=== PATIENT | male | born 1985 | race Caucasian/White ===

== ENCOUNTER 2016-09-11 16:05 | Outpatient (CLI) | payer MEDICAID | END 2016-09-11 16:06 | disposition critical access hospital (66) | LOC: EMS 16:05 | PROVIDERS: ATTEND Surgery | DX: R52 Pain, unspecified (principal); R40.0 Somnolence | CPT/HCPCS: A0425; A0429 ==

== ENCOUNTER 2016-09-11 16:28 | Inpatient (IN) | payer MEDICAID ==
[2016-09-11] MEDS ORDERED: ONDANSETRON 4 MG/2 ML VIAL IVP STA (17:02)
[2016-09-11] MEDS ORDERED: HYDROmorphone 1 MG/ML SYRINGE IM STA (17:02)
[2016-09-11] MEDS ORDERED: SODIUM CHLORIDE 0.9% 1,000 ML IV ONE ×4 (17:02→18:37)
[2016-09-11] MEDS ORDERED: KETOROLAC 60 MG/2 ML VIAL IVP STA (17:02)
[2016-09-11] MEDS ORDERED: HYDROmorphone 1 MG/ML SYRINGE ONE (17:08)
[2016-09-11] MEDS ORDERED: KETOROLAC 60 MG/2 ML VIAL ONE (17:08)
[2016-09-11] MEDS ORDERED: ONDANSETRON 4 MG/2 ML VIAL ONE (17:08)
[2016-09-11] MEDS ORDERED: HYDROmorphone 1 MG/ML SYRINGE IVP STA (17:10)
--- NOTE | 2016-09-11 17:29 | ED Physician Documentation ---
History of Present Illness - Stated complaint Stated Complaint: POSS KIDNEY STONE - Chief complaint Chief Complaint: Abd Pain - History obtained from History obtained from: Patient - Additonal information Additional information: This patient is a 30-year-old male with a history of recurrent nephrolithiasis. He says he has had stones in both kidneys and has had a stent in the left kidney in the past. He says he frequently has kidney type pain however the last day or 2 he has had more pain in the left side described as a stabbing sensation.He is also had nausea and vomiting without fever or chills. He has not had constipation diarrhea or lower urinary symptoms. Denies chest pain or shortness of breath. He believes he might have another kidney stone on the left side. He normally gets his care in [facility] but lives down here with his mother. He denies any traumatic injury to his back. He does say that movement causes pain in his back which is a little different than his typical kidney stone type pain. Review of systems: For pertinent positive and negative questions for the review of systems please see history of present illness. Otherwise all other systems have been reviewed and are negative. Dragon disclaimer: Parts of this medical record were created using voice recognition technology. Because of the inherent limitations of this system occasional same sounding word substitutions do occur and persist despite proofreading. Please read the document for context. PD PAST MEDICAL HISTORY - Past Medical History Past Medical History: Yes : Kidney stones - Past Surgical History General: Cholecystectomy - Present Medications Home Medications: Ambulatory Orders Medication Instructions Recorded Confirmed No Known Home Medications [No 09/11/16 09/11/16 Known Home Medications] - Allergies Allergies/Adverse Reactions: Allergies Allergy/AdvReac Type Severity Reaction Status Date / Time No Known Drug Allergies Allergy Verified 09/11/16 16:34 - Social History Does the pt smoke?: No Smoking Status: Never smoker Does the pt drink ETOH?: No Does the pt have substance abuse?: Yes Substance Use and Type: Marijuana, Meth - Immunizations Immunizations are current?: No Immunizations: TDAP >10years/unknown PD ED PE NORMAL - Vitals Vital signs reviewed: Yes - General General: Alert and oriented X 3, Well developed/nourished - HEENT HEENT: Atraumatic, PERRL, EOMI, Pharynx benign - Cardiac Cardiac: RRR, No murmur, No gallop, No rub - Respiratory Respiratory: No respiratory distress, Clear bilaterally - Abdomen Abdomen: Normal bowel sounds, Non tender, Non distended, Other (The patient is tender to the left upper middle and lower quadrant. There is no significant CVA tenderness however he does have some tenderness in the paraspinal muscle adjacent to L4 area) - Back Back: No CVA TTP - Derm Derm: Normal color, Warm and dry, No rash, Other - Extremities Extremities: No deformity, No tenderness to palpate, Normal ROM s pain, No edema - Neuro Neuro: Alert and oriented X 3, No motor deficit, No sensory deficit, Other (I do not appreciate any weakness in the extremities however the patient does complain of muscular pain in both legs equal bilaterally) - Psych Psych: Normal mood, Normal affect Results - Vitals Vitals: Vital Signs - 24 hr 09/11/16 09/11/16 09/11/16 16:31 18:31 19:02 Temperature 36.6 C 36.5 C Heart Rate 76 90 82 Respiratory 16 14 18 Rate Blood Pressure 159/116 H 141/66 H 147/85 H O2 Saturation 97 95 94 Oxygen O2 Source Room air - Labs Labs: Laboratory Tests 09/11/16 09/11/16 09/11/16 17:33 17:33 18:36 WBC 27.3 H RBC 5.76 Hgb 16.2 Hct 48.1 MCV 83.5 MCH 28.0 MCHC 33.6 RDW 13.1 Plt Count 310 MPV 7.6 Neut # Not Reportable Lymph # Not Reportable [place] # Not Reportable Eos # Not Reportable Baso # Not Reportable Absolute Nucleated RBC Not Reportable Band Neuts % (Manual) 5 Neutrophils # (Manual) 24.8 H Lymphocytes # (Manual) 0.8 L Monocytes # (Manual) 1.6 H Nucleated RBCs Not Reportable WBC Morphology 1+ TOXIC GRANULATION Platelet Estimate NORMAL (130-450,000) RBC Morph Micro Appear NORMAL APPEARANCE Sodium 135 Potassium 3.2 L Chloride 102 Carbon Dioxide 22 Anion Gap 11.0 BUN 20 Creatinine 1.2 Estimated GFR (MDRD) 71 L Glucose 115 H Lactic Acid 0.9 Calcium 9.4 Total Bilirubin 1.3 H AST 17 ALT 29 Alkaline Phosphatase 70 Total Creatine Kinase 82 Total Protein 8.2 Albumin 4.4 Globulin 3.8 Albumin/Globulin Ratio 1.2 Lipase 20 L PD MEDICAL DECISION MAKING - ED course ED course: 30-year-old male with a history of recurrent nephrolithiasis status post left kidney stent well over a year ago who is not followed up to have it removed. He presents with left-sided Back pain starting yesterday. This back pain is a little more posterior and closer His lumbar spine than it normally is. Since he does have a history of recurrent kidney stones he thought Pain was related to his past history of stones. He felt warm last night and occasionally had chills but never measured a temperature. He had recurrent nausea and vomiting last night on several occasions and the pain in the left paralumbar area just intensified. This pain is not really made better by anything including movement. He also complains of being weak and having a cramping sensation in his legs bilaterally. This pain does not radiate into the buttocks or down into the leg and has no weakness of the legs. He finally came in today because he was not getting better. On initial presentation is a large habitus male who was slightly flushed in appearance. He was not found to have a temperature here. An IV line was started and he is given IV fluids pain and nausea medications. On physical exam I thought he had some tenderness closer to the lumbar spine and was wondering whether this is more spinal muscular strain as opposed to recurrent nephrolithiasis. Plain film was done that shows a stent in relatively normal position however the distal end was then coiled a little. There is no clear-cut migration. Next a CT scan of the lumbar spine was done and the results of this test is pending at this time. In the interim his blood work started to come back it showed a significantly elevated white blood cell count. Blood cultures and a serum lactate were ordered as well as additional fluid resuscitation and empiric antibiotics. The case was discussed with urology on-call at [facility] Dr. Azevedo. The case was discussed with her. She feels that true pyelonephrosis is unlikely that the small hydronephrosis we see probably is not indicative of complete obstruction. She recommends vigorous IV hydration and IV antibiotics which have already been initiated. Once we obtain a urine this will be sent for culture as well. The patient has been unable to give us urine so far and refuses a in and out catheterization. Clinically he is doing well. His blood pressure and pulse remained normal.The case was discussed with hospitalist and she is currently evaluating the patient.At this time it appears that he will be kept here at our hospital, hydrated given IV antibiotics and watched very closely.At this time the patient clinically looks and feels much better. His serum lactate came back normal at 0.9. We are still waiting for a urinalysis. Disposition pending admission Clinical impression: 1. Acute pyelonephritis 2. History of recurrent nephrolithiasis and stent placement left side 3. Left flank pain Departure - Departure Disposition: [facility] DC/Xfer Clinical Impression: Pyelonephritis, Pyelonephritis Clinical Impression: (Ruled Out): Pyonephrosis Condition: Serious
--- NOTE | 2016-09-11 17:35 | XRAY Preliminary Report ---
Exam: XR Abdomen 1 View IMPRESSION: Left-sided ureteral stent with the pigtail at the distal end appearing partially uncoiled . [facility] SITE ID: [id number]
--- NOTE | 2016-09-11 17:37 | XRAY Report ---
EXAM: ABDOMEN RADIOGRAPHY EXAM DATE: 09/11/2016 05:05 PM. CLINICAL HISTORY: Severe back pain on left side. Check ureteral stent. COMPARISON: None. TECHNIQUE: 1 view. FINDINGS: Bowel Gas Pattern: Within normal limits. No abnormal stool volume or dilated loops. Bones: Unremarkable. Other: Left-sided ureteral stent. The pigtail at the distal end appears partially uncoiled. Surgical clips in the right upper quadrant. IMPRESSION: Left-sided ureteral stent with the pigtail at the distal end appearing partially uncoiled . [facility] Referring Provider Line: [phone] SITE ID: [id number]
[2016-09-11 17:48] LABS: BASOPHILS % (AUTO) 0.6 %; HCT - HEMATOCRIT 48.1 % (42.0-52.0); HGB - HEMOGLOBIN 16.2 g/dL (14.0-18.0); LYMPHOCYTES % (AUTO) 5.1 %; MEAN CORPUSCULAR HGB CONC 33.6 g/dL (32.0-36.0); MEAN CORPUSCULAR VOLUME 83.5 fL (80.0-94.0); MEAN PLATELET VOLUME 7.6 fL (7.4-11.4); MONOCYTES % (AUTO) 9.5 %; NEUTROPHILS % (AUTO) 84.8 %; RED BLOOD COUNT 5.76 10^6/uL (4.70-6.10); RED CELL DISTRIBUTION WIDTH 13.1 % (12.0-15.0); UNCORRECTED WHITE BLOOD COUNT 27.3 x10^3/uL; WHITE BLOOD COUNT 27.3 x10^3/uL (4.8-10.8)
[2016-09-11 17:54] LABS: ALBUMIN/GLOBULIN RATIO 1.2 (1.0-2.2); BILIRUBIN,TOTAL 1.3 mg/dL (0.2-1.0); CALCIUM 9.4 mg/dL (8.5-10.3); CREATININE 1.2 mg/dL (0.6-1.2); POTASSIUM 3.2 mmol/L (3.5-5.0); TOTAL PROTEIN 8.2 g/dL (6.7-8.2)
[2016-09-11 18:08] LABS: BAND NEUTROPHILS % (MANUAL) 5 %; LYMPHOCYTES % (MANUAL) 3 %; NEUTROPHILS % (MANUAL) 86 %; NP AUTO DIFFERENTIAL? YES; NP MAN DIFFERENTIAL? NO; PLATELET ESTIMATE, MANUAL NORMAL (130-450,000) (NORMAL); WBC MORPHOLOGY (MULTIPLE) 1+ TOXIC GRANULATION (NORMAL)
--- NOTE | 2016-09-11 18:48 | CT Preliminary Report ---
Exam: CT Lumbar Spine W/O IMPRESSION: No evidence of lumbar spine fracture. Left nephrolithiasis, with a nonobstructing 8 mm ca lculus in the proximal left ureter. The left double-J stent, which does not extend into the urinary b ladder. Hydronephrosis, despite the presence of the double-J stent, compatible with stent malfunction . [facility] SITE ID: [id number]
--- NOTE | 2016-09-11 18:51 | CT Report ---
EXAM: CT LUMBAR SPINE WITHOUT CONTRAST EXAM DATE: 09/11/2016 06:17 PM. CLINICAL HISTORY: LEFT SIDED PAIN /TENDERNESS ADJACENT TO L2,L3. COMPARISONS: None. TECHNIQUE: Thin-section axial images were acquired of the lumbar spine from T12 to S1 without contras t. Post-processing: Coronal and sagittal reformats. Other: None. In accordance with CT protocol optimization, one or more of the following dose reduction techniques w ere utilized for this exam: automated exposure control, adjustment of mA and/or KV based on patient s ize, or use of iterative reconstructive technique. FINDINGS: Alignment: Normal. No scoliosis or spondylolisthesis. Bones: Five [id number]-[id number] lumbar vertebral bodies are present. No fractures or bone lesions. Disk Levels/Facets: T12-L1: Unremarkable. L1-L2: Unremarkable. L2-L3: Unremarkable. L3-L4: Unremarkable. L4-L5: Unremarkable. L5-S1: Unremarkable. Musculature: Normal. No fatty atrophy. Other: Left nephrolithiasis is seen, with hydronephrosis. There is an 8 mm calculus obstructing the p roximal left ureter. There is a left double-J stent in place, but the distal end of the double-J sten t terminates in the distal ureter, it does not extend into the urinary bladder, and the hydronephrosi s is present despite the presence of the stent, indicating stent malfunction. IMPRESSION: No evidence of lumbar spine fracture. Left nephrolithiasis, with a nonobstructing 8 mm ca lculus in the proximal left ureter. The left double-J stent, which does not extend into the urinary b ladder. Hydronephrosis, despite the presence of the double-J stent, compatible with stent malfunction . [facility] Referring Provider Line: [phone] SITE ID: [id number]
[2016-09-11] MEDS ORDERED: ONDANSETRON 4 MG/2 ML VIAL IVP PRN (19:33)
[2016-09-11] MEDS ORDERED: POTASSIUM CHLORIDE 20 MEQ TABLET PO SCH (19:55)
--- NOTE | 2016-09-11 20:07 | XRAY Preliminary Report ---
Exam: XR Chest 2 View PA/LAT IMPRESSION: Normal 2-view chest radiography. [facility] SITE ID: [id number]
--- NOTE | 2016-09-11 20:10 | XRAY Report ---
EXAM: CHEST RADIOGRAPHY EXAM DATE: 09/11/2016 07:52 PM. CLINICAL HISTORY: Fever and white count. COMPARISON: None. TECHNIQUE: 2 views. FINDINGS: Lungs/Pleura: No focal opacities evident. No pleural effusion. No pneumothorax. Normal volumes. Mediastinum: Heart and mediastinal contours are unremarkable. Other: None. IMPRESSION: Normal 2-view chest radiography. [facility] Referring Provider Line: [phone] SITE ID: [id number]
[2016-09-11 20:44] LABS: HEMOGLOBIN A1C 0.59 g/dL
[2016-09-11] MEDS: HEPARIN 5,000 UNIT/ML VIAL SUBQ SCH (21:03)
[2016-09-11] MEDS: SODIUM CHLORIDE 0.9% 1,000 ML IV SCH (21:03)
[2016-09-11] MEDS: SODIUM CHLORIDE FLUSH 0.9% 10 ML SYRINGE IVP SCH (21:06)
[2016-09-11] MEDS: FAMOTIDINE 20 MG TABLET PO SCH (21:08)
--- NOTE | 2016-09-11 21:27 | Ultrasound Preliminary Report ---
Exam: US Abdomen Complete IMPRESSION: 1. Hyperechoic liver parenchyma suspicious for fatty infiltration. No mass. 2. Gallbladder surgically absent. Prominent common bile duct. No obstructive stone or mass lesion. 3. Pancreas poorly seen due to bowel gas. Study limited by body habitus. 4. Mild left pelviectasis. 0.8 cm mid left renal stone. [facility] SITE ID: [id number]
--- NOTE | 2016-09-11 21:27 | Ultrasound Preliminary Report ---
Exam: US Bladder IMPRESSION: 1. Left ureteral jet not seen. Normal bladder otherwise. 2. See separate renal ultrasound. [facility] SITE ID: [id number]
--- NOTE | 2016-09-11 21:33 | HISTORY & PHYSICAL EXAMINATION ---
DATE OF ADMISSION: 09/11/2016 ADDENDUM: REQUESTS ALREADY-DICTATED HandP BE DONE STAT - THIS STAT CAME THROUGH WITH MESSAGE ONLY . WILL SEE IF DICTATED HandP COMES THROUGH NEXT DOCUMENT. PATIENT NAME NOT GIVEN HERE - JOB #: [id number] EXT JOB #:[id number]
--- NOTE | 2016-09-11 22:00 | Ultrasound Report ---
EXAM: ABDOMEN ULTRASOUND EXAM DATE: 09/11/2016 09:09 PM. CLINICAL HISTORY: Pain,leukocytosis. COMPARISON: None. TECHNIQUE: Real-time scanning was performed with static images obtained. FINDINGS: Liver: Heterogeneous liver parenchyma. No mass. Evaluation of the liver is limited due to body habitu s. 17 cm. Main portal vein flow: Hepatopetal. Not well-seen. Gallbladder: Gallbladder surgically absent. Biliary System: Common bile duct measures 11 mm. Prominent extrahepatic bile duct dilation without ga llstones. No intrahepatic bile duct dilation. Pancreas: Not well seen due to body habitus. Kidneys: Right: 13.5 cm longitudinally. No renal mass, stones or hydronephrosis. Left: 13 cm longitudinally. No contour deforming renal mass. Mild left pelviectasis better seen on CT . 0.8 cm shadowing mid left renal stone. Spleen: 12.2 x 4.5 x 9.7 cm. Normal in size and echotexture. Aorta and Inferior Vena Cava: IVC not well seen. No abdominal aortic dilation. IMPRESSION: 1. Hyperechoic liver parenchyma suspicious for fatty infiltration. No mass. 2. Gallbladder surgically absent. Prominent common bile duct. No obstructive stone or mass lesion. 3. Pancreas poorly seen due to bowel gas. Study limited by body habitus. 4. Mild left pelviectasis. A 0.8 cm mid left renal stone. [facility] Referring Provider Line: [phone] SITE ID: [id number]
--- NOTE | 2016-09-11 22:00 | Ultrasound Report ---
EXAM: PELVIS ULTRASOUND, LIMITED EXAM DATE: 09/11/2016 09:09 PM. CLINICAL HISTORY: Pyelonephritis. COMPARISON: None. TECHNIQUE: Real-time scanning was performed with static images obtained. FINDINGS: Right ureteral jet is seen. Left ureteral jet not seen. Prevoid bladder volume measures 80. 9 mL. No post void bladder imaging acquired. Bladder is normal. See separate renal ultrasound report. Briefly, mild left pelviectasis better seen on CT. A 0.8 cm lef t renal stone noted. IMPRESSION: 1. Left ureteral jet not seen. Normal bladder otherwise. 2. See separate renal ultrasound. [facility] Referring Provider Line: [phone] SITE ID: [id number]
[2016-09-11] MEDS: HYDROmorphone 1 MG/ML SYRINGE IVP PRN (23:52)
[2016-09-12 00:11] LABS: BILIRUBIN,URINE NEGATIVE (NEGATIVE)
[2016-09-12 00:12] LABS: UA w/ MICROSCOPIC CHARGE YES; UR CULTURE IF IND NOT INDICATED; WBC,URINE 0-3 /HPF (0-3)
[2016-09-12] MEDS: SODIUM CHLORIDE 0.9% 1,000 ML IV SCH ×4 (03:23→22:55)
[2016-09-12] MEDS: HYDROmorphone 1 MG/ML SYRINGE IVP PRN ×6 (03:23→23:49)
[2016-09-12] MEDS: SODIUM CHLORIDE FLUSH 0.9% 10 ML SYRINGE IVP SCH ×3 (05:01→21:00)
--- NOTE | 2016-09-12 06:48 | HISTORY & PHYSICAL EXAMINATION ---
DATE OF ADMISSION: 09/11/2016 PRIMARY CARE PROVIDER: None. CHIEF COMPLAINT: Left flank pain, fevers, chills. HISTORY OF PRESENT ILLNESS: This is a 30-year-old male who does have a history of nephrolithiasis. He had 2 separate times left ureteral stent placed due to obstructing stones. Last was a year ago, done at [facility]. We do not have old records at this time. He, in the emergency room here today, did have an elevated white count of 27.3 with 23.8 polys. He was afebrile here. Urine was not obtained as patient did not produce any urine and refused straight catheterization for this. He did have CT of lumbar spine initially, ER doctor was thinking that he might have diskitis. His lumbar CT spine revealed no evidence of lumbar spine fracture, left nephrolithiasis with a nonobstructing 8 mm calculus in the proximal left ureter. The left double-J stent which does not extend into the urin larry bladder, hydronephrosis despite the presence of the double-J stent compatible with stent malfunct ion. However, Dr. Turner, ER doctor, did review this with Urology at [facility] who thought that the stent malfunction was highly unlikely and possibly has a pyelonephritis leading to the hydronephrosis, treat with IV antibiotics and keep at [facility]. If further problems de velop, to give her a call. PAST MEDICAL HISTORY 1. History of nephrolithiasis, unclear composition with left ureteral stent x2, most recently a year ago. 2. Morbid obesity. MEDICATIONS UPON ADMISSION: None. ALLERGIES: NO KNOWN DRUG ALLERGIES. SOCIAL HISTORY: Lives with mother. Smoking: Does smoke marijuana. Alcohol: None. FAMILY MEDICAL HISTORY: Mother and brother with a history of type 2 diabetes. REVIEW OF SYSTEMS: Denies any alteration of bowel movements. Denies cough. All other review of system s are reviewed and are negative except for as in HPI. PHYSICAL EXAMINATION VITAL SIGNS: Temperature 36.6, heart rate 79, blood pressure 145/84, respiratory rate 18, room air sa t 95%. CONSTITUTIONAL: Morbidly obese young male in mild pain distress. HEENT: Head normocephalic, atraumatic. Eyes: PERRLA-DC, EOMI. Mouth: No lesions. NECK: No adenopathy. Carotids 2+/4 without bruits. CHEST: Clear to auscultation. COR: Regular rate and rhythm. S1, S2 without murmur. ABDOMEN: Soft. There is mild tenderness in the epigastrium. No rebound. No guarding. He does have lef t flank pain tenderness to palpation. EXTREMITIES: Reveal no pedal edema. SKIN: Reveals no rashes. PSYCH: Mood and affect are appropriate. NEURO: Alert and oriented x3. Motor strength is intact bilaterally. LABS: As above. Also to include white count of 27.3, hemoglobin 16.2, hematocrit 48.1, MCV 83.5, plat elets 310, with 24.8 polys. Sodium 135, potassium 3.2, chloride 102, bicarbonate 22, anion gap 11, BU N 20, creatinine 1.2, calculated GFR 71. No old labs for comparison. Glucose 115, lactic acid 0.9, ca lcium 9.4, total bilirubin 1.3, AST 17, ALT 29, alkaline phosphatase 70. CK 82, total protein 8.2, al bumin 4.4, lipase 20. ASSESSMENT AND PLAN 1. Acute left flank pain, possibly secondary to pyelonephritis although awaiting urine. Will treat wi th IV Levaquin as recommended by Urology as [facility]. Monitor clinically. Will al so use Zofran p.r.n. nausea and vomiting. 2. Morbid obesity, chronic, present on admission. Will check hemoglobin A1c, particularly in light of family history of this and has not seen his physician recently. 3. Deep venous thrombosis prophylaxis. Will place on subcutaneous anticoagulation and sequential comp ression devices. 4. Code status. Patient is FULL CODE. TIME SPENT: Sixty minutes. JOB #: [id number] EXT JOB #:[id number]
[2016-09-12] MEDS: FAMOTIDINE 20 MG TABLET PO SCH ×2 (08:32→21:00)
[2016-09-12] MEDS: ACETAMINOPHEN 325 MG TABLET PO PRN (08:32)
[2016-09-12] MEDS: POLYETHYLENE GLYCOL 3350 17 GM PACKET PO SCH (08:33)
[2016-09-12] MEDS: HEPARIN 5,000 UNIT/ML VIAL SUBQ SCH ×2 (08:33→20:57)
[2016-09-12 08:43] LABS: BILIRUBIN,URINE NEGATIVE (NEGATIVE); PH,URINE 6.5 PH (5.0-7.5)
[2016-09-12 08:48] LABS: UR CULTURE IF IND NOT INDICATED
--- NOTE | 2016-09-12 12:17 | PROVIDER PROGRESS NOTE ---
Assessment/Plan - Problem List (1) Pyelonephritis Assessment/Plan: I was requested by Uribe S[employer]IOR [employer] to see Mr. Toure as he had told staff he was having difficulty understandin the provider. After review of the chart including the studies and the H&P I interviewed Rashad. He was in some pain was drowsy but easily arouseable. He retold his history with focus on the events leading up to this hospitalization. Questions were solicited and the plan was reviewed. He indicated he was getting adequate pain relief and was "as good as I can be". He will be closely monitored given the serious illness. He has not deteriorated and does not need ICU level of care at this time. He will be visited by this physician again this afternoon. Since the PCP will change in the am and Uribe has already examined him he will remain on the same panel. Fiona Pastrana MD [id number] 09/12/70 - Current Meds Current Meds: Current Medications Generic Name Dose Route Start Last Admin Trade Name Freq PRN Reason Stop Dose Admin Acetaminophen 650 mg 09/11/16 19:40 09/12/16 08:32 Tylenol PO 650 mg Q4HR PRN Administration Pain or Fever > 38C (100.4F) Famotidine 20 mg 09/11/16 21:00 09/12/16 08:32 Pepcid PO 20 mg BID MICHELLE Administration Heparin Sodium (Porcine) 5,000 unit 09/11/16 21:00 09/12/16 08:33 SUBQ 5,000 unit BID MICHELLE Administration Hydromorphone HCl 1 mg 09/11/16 19:36 09/12/16 07:36 Dilaudid Inj IVP 1 mg Q2HR PRN Administration PAIN Sodium Chloride 1,000 mls @ 150 mls/hr 09/11/16 20:00 09/12/16 09:46 Normal Saline 0.9% IV 150 mls/hr .Q6H40M MICHELLE Administration Polyethylene Glycol 17 gm 09/12/16 09:00 09/12/16 08:33 Miralax PO Not Given DAILY MICHELLE Sodium Chloride 10 ml 09/11/16 22:00 09/12/16 05:01 Normal Saline Flush 0.9% IVP Not Given Q8HR MICHELLE - Lab Result Fish Bone Diagrams: 09/11/16 17:33 09/11/16 17:33 Objective Vital Signs: Vital Signs - 24 hr 09/11/16 09/11/16 09/12/16 19:40 20:51 00:00 Temperature 36.7 C 36.4 C L Heart Rate 79 Heart Rate [ 71 89 Brachial] Respiratory 18 20 20 Rate Blood Pressure 145/84 H Blood Pressure 148/85 H 116/75 [Left Brachial artery] O2 Saturation 95 98 97 09/12/16 07:57 Temperature 37.1 C Heart Rate Heart Rate [ 94 Brachial] Respiratory 20 Rate Blood Pressure Blood Pressure 137/90 H [Left Brachial artery] O2 Saturation 94 Oxygen O2 Source Room air I&O (Last 24 Hrs): Intake and Output Totals x24h 09/10/16 09/11/16 09/12/16 23:59 23:59 23:59 Intake Total 247 1670 Output Total 150 Balance 97 1670 - Results Results: Laboratory Results WBC 27.3 x10^3/uL (4.8-10.8) H 09/11/16 17:33 RBC 5.76 10^6/uL (4.70-6.10) 09/11/16 17:33 Hgb 16.2 g/dL (14.0-18.0) 09/11/16 17:33 Hct 48.1 % (42.0-52.0) 09/11/16 17:33 MCV 83.5 fL (80.0-94.0) 09/11/16 17:33 MCH 28.0 pg (27.0-31.0) 09/11/16 17:33 MCHC 33.6 g/dL (32.0-36.0) 09/11/16 17:33 RDW 13.1 % (12.0-15.0) 09/11/16 17:33 Plt Count 310 10^3/uL (130-450) 09/11/16 17:33 MPV 7.6 fL (7.4-11.4) 09/11/16 17:33 Neut # Not Reportable 09/11/16 17:33 Lymph # Not Reportable 09/11/16 17:33 [place] # Not Reportable 09/11/16 17:33 Eos # Not Reportable 09/11/16 17:33 Baso # Not Reportable 09/11/16 17:33 Absolute Nucleated RBC Not Reportable 09/11/16 17:33 Band Neuts % (Manual) 5 % (0-10) 09/11/16 17:33 Neutrophils # (Manual) 24.8 10^3/uL (1.5-6.6) H 09/11/16 17:33 Lymphocytes # (Manual) 0.8 10^3/uL (1.5-3.5) L 09/11/16 17:33 Monocytes # (Manual) 1.6 10^3/uL (0.0-1.0) H 09/11/16 17:33 Nucleated RBCs Not Reportable 09/11/16 17:33 WBC Morphology 1+ TOXIC GRANULATION (NORMAL) 09/11/16 17:33 Platelet Estimate NORMAL (130-450,000) (NORMAL) 09/11/16 17: RBC Morph Micro Appear NORMAL APPEARANCE (NORMAL) 09/11/16 17:33 Sodium 135 mmol/L (135-145) 09/11/16 17:33 Potassium 3.2 mmol/L (3.5-5.0) L 09/11/16 17:33 Chloride 102 mmol/L (101-111) 09/11/16 17: Carbon Dioxide 22 mmol/L (21-32) 09/11/16 17:33 Anion Gap 11.0 (6-13) 09/11/16 17:33 BUN 20 mg/dL (6-20) 09/11/16 17:33 Creatinine 1.2 mg/dL (0.6-1.2) 09/11/16 17:33 Estimated GFR (MDRD) 71 (>89) L 09/11/16 17:33 Glucose 115 mg/dL (70-100) H 09/11/16 17:33 Glycated Hemoglobin 5.4 % (4.6-6.2) 09/11/16 17:33 Estim Average Glucose 108 (70-100) H 09/11/16 17:33 Lactic Acid 0.9 mmol/L (0.5-2.2) 09/11/16 18:36 Calcium 9.4 mg/dL (8.5-10.3) 09/11/16 17:33 Total Bilirubin 1.3 mg/dL (0.2-1.0) H 09/11/16 17:33 AST 17 IU/L (10-42) 09/11/16 17:33 ALT 29 IU/L (10-60) 09/11/16 17:33 Alkaline Phosphatase 70 IU/L (42-121) 09/11/16 17:33 Total Creatine Kinase 82 IU/L (22-269) 09/11/16 17:33 Total Protein 8.2 g/dL (6.7-8.2) 09/11/16 17:33 Albumin 4.4 g/dL (3.2-5.5) 09/11/16 17: Globulin 3.8 g/dL (2.1-4.2) 09/11/16 17:33 Albumin/Globulin Ratio 1.2 (1.0-2.2) 09/11/16 17:33 Lipase 20 U/L (22-51) L 09/11/16 17:33 Urine Color YELLOW 09/12/16 08:00 Urine Clarity CLEAR (CLEAR) 09/12/16 08:00 Urine pH 6.5 PH (5.0-7.5) 09/12/16 08:00 Ur Specific [place] 1.020 (1.002-1.030) 09/12/16 08:00 Urine Protein NEGATIVE mg/dL (NEGATIVE) 09/12/16 08:00 Urine Glucose (UA) NEGATIVE mg/dL (NEGATIVE) 09/12/16 08:00 Urine Ketones 15 mg/dL (NEGATIVE) H 09/12/16 08:00 Urine Occult Blood MODERATE (NEGATIVE) H 09/12/16 08:00 Urine Nitrite NEGATIVE (NEGATIVE) 09/12/16 08:00 Urine Bilirubin NEGATIVE (NEGATIVE) 09/12/16 08:00 Urine Urobilinogen 1 (NORMAL) E.U./dL (NORMAL) 09/12/16 08:00 Ur Leukocyte Esterase NEGATIVE (NEGATIVE) 09/12/16 08:00 Urine RBC 6-10 /HPF (0-5) H 09/12/16 08:00 Urine WBC 4-5 /HPF (0-3) 09/12/16 08:00 Ur Squamous Epith Cells RARE Squamous (<= Few) 09/12/16 08:00 Urine Bacteria Rare /HPF (None Seen) 09/12/16 08:00 Ur Microscopic Review INDICATED 09/11/16 23:45 Urine Culture Comments NOT INDICATED 09/12/16 08:00
--- NOTE | 2016-09-12 12:19 | PROVIDER PROGRESS NOTE ---
Subjective - Prog Note Date Prog Note Date: 09/12/16 Prog Note Time: 12:17 - Subjective Subjective: pt report he does not have pain now, after given pain medication Objective - Vital Signs/Intake & Output Vital Signs: Vital Signs x48h Temp Pulse Resp BP Pulse Ox 09/12/16 07:57 37.1 C 94 20 137/90 H 94 Intake & Output: Intake & Output 09/09/16 09/10/16 09/11/16 09/12/16 23:59 23:59 23:59 23:59 Intake Total 247 1670 Output Total 150 Balance 97 1670 - Objective General Appearance: positive: No acute distress, Alert Eyes Bilateral: positive: Normal inspection, PERRL, EOMI ENT: positive: ENT inspection nml, No signs of dehydration. negative: Pharynx nml, Purulent nasal drainage, Pharyngeal erythema, Oral lesions, Dry mucous membranes, Other Neck: positive: Nml inspection, Thyroid nml, No JVD, Trachea midline. negative : Thyromegaly, Lymphadenopathy (R), Lymphadenopathy (L), Stiff neck, Kernig's sign, Brudzinski's sign, Carotid bruit, Swelling/bruising, Tracheal deviation, Other Respiratory: positive: Chest non-tender, No respiratory distress, Breath sounds nml. negative: Wheezes, Rales, Rhonchi, Other Cardiovascular: positive: Regular rate & rhythm, No murmur, No gallop. negative : Irregularly irregular, Extrasystoles, Tachycardia, Bradycardia, PMI displaced laterally, JVD present, Systolic murmur, Diastolic murmur, Gallop/S3, Gallop/S4 , Friction rub, Decreased pulse(s), Crepitus, Other Peripheral Pulses: 2+ Radial (R), 2+ Radial (L), 2+ Dorsalis pedis (R), 2+ Dorsalis pedis (L) Abdomen: positive: Non-tender, Nml bowel sounds, No distention. negative: No organomegaly, Tenderness, Guarding, Rebound, Hepatomegaly, Splenomegaly, Mass, Abnml bowel sounds, Bruit, Other Back: positive: Nml inspection, CVA tenderness (L). negative: CVA tenderness (R ), Other Skin: positive: Color nml, Warm. negative: No rash, Dry, Cyanosis, Diaphoresis , Pallor, Skin rash, Decubitus, Laceration (cm), Puncture wound, Embolic lesions , Other Extremities: positive: Non-tender, Full ROM, Nml appearance. negative: No pedal edema, Pedal edema, Calf tenderness, Joint swelling, Liu's sign/cords, Other Neurologic/Psychiatric: positive: Oriented x3, CN's nml (2-12), Motor nml, Sensation nml, Mood/affect nml - Lab Results Fish Bones: 09/11/16 17:33 09/11/16 17:33 Other Labs: Lab Results x24hrs 09/12/16 09/11/16 Range/Units 08:00 23:45 Urine Color YELLOW DARK YELLOW Urine Clarity CLEAR CLEAR (CLEAR) Urine pH 6.5 6.0 (5.0-7.5) PH Ur Specific [place] 1.020 >=1.030 H (1.002-1.030) Urine Protein NEGATIVE NEGATIVE (NEGATIVE) mg/dL Urine Glucose (UA) NEGATIVE NEGATIVE (NEGATIVE) mg/dL Urine Ketones 15 H 15 H (NEGATIVE) mg/dL Urine Occult Blood MODERATE H MODERATE H (NEGATIVE) Urine Nitrite NEGATIVE NEGATIVE (NEGATIVE) Urine Bilirubin NEGATIVE NEGATIVE (NEGATIVE) Urine Urobilinogen 1 (NORMAL) 0.2 (NORMAL) (NORMAL) E.U./dL Ur Leukocyte Esterase NEGATIVE NEGATIVE (NEGATIVE) Urine RBC 6-10 H 6-10 H (0-5) /HPF Urine WBC 4-5 0-3 (0-3) /HPF Ur Squamous Epith Cells RARE Squamous NONE SEEN (<= Few) Urine Bacteria Rare None Seen (None Seen) /HPF Ur Microscopic Review INDICATED Urine Culture Comments NOT INDICATED NOT INDICATED - Diagnostic Imaging Diagnostic Imaging Results: positive: Prelim report reviewed, Final report reviewed - Other Results/Comments Other Results/Comments: I went to see pt at [facility]. I introduced my self to patient. I asked how he is feeling. He did not directly answer to me but state his pain is completely controlled I updated information to patient including new imagery study. I did whole focus examination to patient include lung, heart and abdomen which focus on his left flank. I asked patient where his pain was. Patient reported only at his left flank area , but not at his right side, no other pain. I also asked if any fever, chill, shortness of breathing, chest pain. patient state he did not have. I asked any dysuria ( pain when urination) and hematuria ( blood staining or blood at urine) . Patient state he did not have. I asked any difficult to urinate. Patient stated to me "normal." I asked how long and where he had his procedure, he answered about one year ago and at [facility]. I also tell him the current diagnosis and the plan what we will do for him. If the symptoms improves, the hospital course may need couple days. If not improve , we will do further investigation, call the urologist, radiologist to consult, adjust treatment plan. I also ask patient if any further questions to me, patient did not answer to me.
[2016-09-13] MEDS: SODIUM CHLORIDE 0.9% 1,000 ML IV SCH ×2 (05:51→11:26)
[2016-09-13] MEDS: SODIUM CHLORIDE FLUSH 0.9% 10 ML SYRINGE IVP SCH ×3 (05:52→16:58)
[2016-09-13 05:53] LABS: BASOPHILS % (AUTO) 0.1 %; EOSINOPHILS % (AUTO) 0.1 %; HCT - HEMATOCRIT 41.7 % (42.0-52.0); HGB - HEMOGLOBIN 13.9 g/dL (14.0-18.0); LYMPHOCYTES # (AUTO) 1.1 10^3/uL (1.5-3.5); LYMPHOCYTES % (AUTO) 5.8 %; MEAN CORPUSCULAR HEMOGLOBIN 28.2 pg (27.0-31.0); MEAN CORPUSCULAR HGB CONC 33.2 g/dL (32.0-36.0); MEAN CORPUSCULAR VOLUME 84.8 fL (80.0-94.0); MEAN PLATELET VOLUME 7.5 fL (7.4-11.4); MONOCYTES # (AUTO) 1.8 10^3/uL (0.0-1.0); MONOCYTES % (AUTO) 9.6 %; NEUTROPHILS # (AUTO) 15.5 10^3/uL (1.5-6.6); NEUTROPHILS % (AUTO) 84.4 %; RED BLOOD COUNT 4.92 10^6/uL (4.70-6.10); RED CELL DISTRIBUTION WIDTH 13.1 % (12.0-15.0); UNCORRECTED WHITE BLOOD COUNT 18.3 x10^3/uL; WHITE BLOOD COUNT 18.3 x10^3/uL (4.8-10.8)
[2016-09-13 06:07] LABS: ALBUMIN/GLOBULIN RATIO 0.8 (1.0-2.2); BILIRUBIN,TOTAL 1.3 mg/dL (0.2-1.0); CALCIUM 8.3 mg/dL (8.5-10.3); POTASSIUM 3.8 mmol/L (3.5-5.0); TOTAL PROTEIN 6.6 g/dL (6.7-8.2)
[2016-09-13] MEDS: FAMOTIDINE 20 MG TABLET PO SCH ×2 (07:37→21:04)
[2016-09-13] MEDS: HYDROmorphone 1 MG/ML SYRINGE IVP PRN ×2 (07:37→11:26)
[2016-09-13] MEDS: POLYETHYLENE GLYCOL 3350 17 GM PACKET PO SCH (08:16)
[2016-09-13] MEDS: HEPARIN 5,000 UNIT/ML VIAL SUBQ SCH ×2 (08:17→21:04)
--- NOTE | 2016-09-13 08:45 | Ultrasound Preliminary Report ---
Exam: US Retroperitoneal IMPRESSION: Normal renal ultrasound. No hydronephrosis. [facility] SITE ID: [id number]
--- NOTE | 2016-09-13 08:47 | Ultrasound Report ---
EXAM: RENAL ULTRASOUND EXAM DATE: 09/13/2016 07:38 AM. CLINICAL HISTORY: F/U [place] nephrosis. COMPARISON: 09/11/2016. TECHNIQUE: Real-time scanning was performed with static images obtained. FINDINGS: Right Kidney: 13.9 x 6.3 x 7.3 cm. Normal echotexture with no stones, contour-deforming masses, or hy dronephrosis. Left Kidney: 13.5 x 7.3 x 7.7 cm. Normal echotexture with no stones, contour-deforming masses, or hyd ronephrosis. Bladder: Bilateral jets seen. The prevoid bladder volume was 75.4 cc. IMPRESSION: Normal renal ultrasound. No hydronephrosis. [facility] Referring Provider Line: [phone] SITE ID: [id number]
[2016-09-13] MEDS: DOCUSATE SODIUM 250 MG CAPSULE PO SCH ×2 (11:52→21:04)
--- NOTE | 2016-09-13 11:57 | PROVIDER PROGRESS NOTE ---
Subjective - Prog Note Date Prog Note Date: 09/13/16 Prog Note Time: 11:55 - Subjective Pt reports feeling: No change Subjective: Patient laying flat in bed, seen at 0845 and he was drowsy, said to "come back later" and barely opened his eyes. Saw patient again at 1130 and he is still drowsy, complains of 10/10 low back back that is unchanged since admit, improved some by pain meds. He denies nausea and said he had a "little to eat" for breakfast. Denies abdominal pain, last BM "a couple days ago" Current Medications - Current Medications Current Medications: Active Medications Acetaminophen (Tylenol) 650 mg PO Q4HR PRN PRN Reason: Pain or Fever > 38C (100.4F) Last Admin: 09/12/16 08:32 Dose: 650 mg Docusate Sodium (Colace 250mg Capsule) 250 mg PO BID [facility] Last Admin: 09/13/16 11:52 Dose: 250 mg Famotidine (Pepcid) 20 mg PO BID [facility] Last Admin: 09/13/16 07:37 Dose: 20 mg Heparin Sodium (Porcine) () 5,000 unit SUBQ BID [facility] Last Admin: 09/13/16 08:17 Dose: 5,000 unit Hydromorphone HCl (Dilaudid Inj) 1 mg IVP Q2HR PRN PRN Reason: PAIN Last Admin: 09/13/16 11:26 Dose: 1 mg Levofloxacin (Levaquin 500 Mg/100 Ml) 100 mls @ 100 mls/hr IV Q24H [facility] Last Admin: 09/12/16 18:07 Dose: 100 mls/hr Ondansetron HCl (Zofran Inj) 4 mg IVP Q6HR PRN PRN Reason: Nausea / Vomiting Polyethylene Glycol (Miralax) 17 gm PO DAILY [facility] Last Admin: 09/13/16 08:16 Dose: Not Given Sodium Chloride (Normal Saline Flush 0.9%) 10 ml IVP PRN PRN PRN Reason: NEEDED PER PROVIDER ORDERS Sodium Chloride (Normal Saline Flush 0.9%) 10 ml IVP Q8HR [facility] Last Admin: 09/13/16 11:52 Dose: 10 ml No Known Home Medications [No Known Home Medications] 09/11/16 Objective - Vital Signs/Intake & Output Vital Signs: Vital Signs x48h Temp Pulse Resp BP Pulse Ox 09/13/16 09:00 36.8 C 93 22 143/87 H 96 Intake & Output: Intake & Output 09/10/16 09/11/16 09/12/16 09/13/16 23:59 23:59 23:59 23:59 Intake Total 247 4746 2170 Output Total 150 1075 600 Balance 97 3671 1570 - Objective General Appearance: positive: No acute distress (drowsy (from narcotics)) Eyes Bilateral: positive: PERRL ENT: positive: No signs of dehydration Neck: positive: No JVD Respiratory: positive: Chest non-tender, No respiratory distress, Breath sounds nml (diminished bases) Cardiovascular: positive: Regular rate & rhythm (distant heart sounds (due to body habitus), no obvious murmur). negative: Tachycardia Peripheral Pulses: 1+ Dorsalis pedis (R), 1+ Dorsalis pedis (L), 2+ Radial (R), 2+ Radial (L) Abdomen: positive: Non-tender (obese, large and round. HYPOactive BS) Back: positive: CVA tenderness (R), CVA tenderness (L) Skin: positive: Color nml, Warm, Dry. negative: Skin rash Extremities: positive: Non-tender, Full ROM, Nml appearance. negative: Pedal edema Neurologic/Psychiatric: positive: Oriented x3, Motor nml, Sensation nml. negative: Mood/affect nml (drowsy, flat affect) - Lab Results Fish Bones: 09/13/16 05:46 09/13/16 05:46 Other Labs: Lab Results x24hrs 09/13/16 09/13/16 09/13/16 Range/Units 05:46 05:46 05:46 WBC 18.3 H (4.8-10.8) x10^3/uL RBC 4.92 (4.70-6.10) 10^6/uL Hgb 13.9 L (14.0-18.0) g/dL Hct 41.7 L (42.0-52.0) % MCV 84.8 (80.0-94.0) fL MCH 28.2 (27.0-31.0) pg MCHC 33.2 (32.0-36.0) g/dL RDW 13.1 (12.0-15.0) % Plt Count 189 (130-450) 10^3/uL MPV 7.5 (7.4-11.4) fL Neut # 15.5 H (1.5-6.6) 10^3/uL Lymph # 1.1 L (1.5-3.5) 10^3/uL Meagher # 1.8 H (0.0-1.0) 10^3/uL Eos # 0.0 (0.0-0.7) 10^3/uL Baso # 0.0 (0.0-0.1) 10^3/uL Absolute Nucleated RBC 0.00 x10^3/uL Nucleated RBCs 0.0 /100WBC Sodium 133 L (135-145) mmol/L Potassium 3.8 (3.5-5.0) mmol/L Chloride 102 (101-111) mmol/L Carbon Dioxide 23 (21-32) mmol/L Anion Gap 8.0 (6-13) BUN 13 (6-20) mg/dL Creatinine 1.0 (0.6-1.2) mg/dL Estimated GFR (MDRD) 87 L (>89) Glucose 128 H (70-100) mg/dL Lactic Acid 0.8 (0.5-2.2) mmol/L Calcium 8.3 L (8.5-10.3) mg/dL Total Bilirubin 1.3 H (0.2-1.0) mg/dL AST 17 (10-42) IU/L ALT 33 (10-60) IU/L Alkaline Phosphatase 65 (42-121) IU/L Total Protein 6.6 L (6.7-8.2) g/dL Albumin 3.0 L (3.2-5.5) g/dL Globulin 3.6 (2.1-4.2) g/dL Albumin/Globulin Ratio 0.8 L (1.0-2.2) Assessment/Plan - Problem List (1) Pyelonephritis Impression: Presented with left flank pain and fever/chills in the setting of hx of kidney stones and JJ ureteral stent placement a year ago (failed to follow-up as outpatient). He has had no fever or tachycardia. WBC 27, started empirically on levaquin - now 18. Pain persists. Renal US shows resolution of hydronephrosis. -IV levaquin (needs 10d course per urology) -PO tylenol and IV toradol q6hr prn -PO oxycodone if above ineffective -IV dilaudid prn breakthrough pain if oxycodone ineffective -Bowel regimen: colace BID (refusing miralax) Discussed with Dr Espinosa ([facility] urology) who know the patient, reports concern that stent may be calcified making stone removal difficulty and may need posterior (through the back) approach. Follow-up in the clinic 09/27/16 2:30pm in the [place] office to discuss plan.
[2016-09-13] MEDS ORDERED: KETOROLAC 30 MG/ML VIAL IVP PRN (12:25)
[2016-09-13] MEDS: oxyCODONE 5 MG TABLET PO PRN (13:22)
[2016-09-13] MEDS: ACETAMINOPHEN 325 MG TABLET PO PRN (13:22)
[2016-09-13] MEDS: KETOROLAC 15 MG/ML VIAL IVP PRN (16:57)
[2016-09-14] MEDS: ACETAMINOPHEN 325 MG TABLET PO PRN ×2 (02:29→12:16)
[2016-09-14] MEDS: KETOROLAC 15 MG/ML VIAL IVP PRN ×3 (02:29→19:37)
[2016-09-14] MEDS: SODIUM CHLORIDE FLUSH 0.9% 10 ML SYRINGE IVP PRN ×4 (02:30→21:45)
[2016-09-14 05:17] LABS: BASOPHILS % (AUTO) 0.3 %; EOSINOPHILS # (AUTO) 0.1 10^3/uL (0.0-0.7); EOSINOPHILS % (AUTO) 0.5 %; HCT - HEMATOCRIT 41.4 % (42.0-52.0); HGB - HEMOGLOBIN 13.7 g/dL (14.0-18.0); LYMPHOCYTES # (AUTO) 1.1 10^3/uL (1.5-3.5); LYMPHOCYTES % (AUTO) 7.2 %; MEAN CORPUSCULAR HEMOGLOBIN 28.1 pg (27.0-31.0); MEAN CORPUSCULAR HGB CONC 33.1 g/dL (32.0-36.0); MEAN CORPUSCULAR VOLUME 84.9 fL (80.0-94.0); MEAN PLATELET VOLUME 7.9 fL (7.4-11.4); MONOCYTES # (AUTO) 1.6 10^3/uL (0.0-1.0); MONOCYTES % (AUTO) 10.2 %; NEUTROPHILS # (AUTO) 12.6 10^3/uL (1.5-6.6); NEUTROPHILS % (AUTO) 81.8 %; RED BLOOD COUNT 4.88 10^6/uL (4.70-6.10); RED CELL DISTRIBUTION WIDTH 12.7 % (12.0-15.0); UNCORRECTED WHITE BLOOD COUNT 15.4 x10^3/uL; WHITE BLOOD COUNT 15.4 x10^3/uL (4.8-10.8)
[2016-09-14] MEDS: SODIUM CHLORIDE FLUSH 0.9% 10 ML SYRINGE IVP SCH ×3 (05:24→18:05)
[2016-09-14 05:31] LABS: ALBUMIN/GLOBULIN RATIO 0.8 (1.0-2.2); BILIRUBIN,TOTAL 1.2 mg/dL (0.2-1.0); CALCIUM 8.7 mg/dL (8.5-10.3); CREATININE 1.1 mg/dL (0.6-1.2); POTASSIUM 3.5 mmol/L (3.5-5.0)
[2016-09-14] MEDS: DOCUSATE SODIUM 250 MG CAPSULE PO SCH ×2 (09:00→20:32)
[2016-09-14] MEDS: HEPARIN 5,000 UNIT/ML VIAL SUBQ SCH ×2 (09:19→20:34)
[2016-09-14] MEDS: FAMOTIDINE 20 MG TABLET PO SCH ×2 (09:19→20:32)
--- NOTE | 2016-09-14 11:09 | PROVIDER PROGRESS NOTE ---
Subjective - Prog Note Date Prog Note Date: 09/14/16 Prog Note Time: 09:00 - Subjective Pt reports feeling: Improved Subjective: Patient more awake today but keeps his eyes closed and is resistant to answering my questions or engaging in conversation. Reports low back pain persists, but is controlled. Has some pain with urination unsure of hematuria but says "its dark". Denies nausea/vomiting. Reports a BM this morning. Denies fever/chills. Current Medications - Current Medications Current Medications: Active Medications Acetaminophen (Tylenol) 650 mg PO Q4HR PRN PRN Reason: Pain or Fever > 38C (100.4F) Last Admin: 09/14/16 02:29 Dose: 650 mg Docusate Sodium (Colace 250mg Capsule) 250 mg PO BID [facility] Last Admin: 09/13/16 21:04 Dose: 250 mg Famotidine (Pepcid) 20 mg PO BID [facility] Last Admin: 09/14/16 09:19 Dose: 20 mg Heparin Sodium (Porcine) () 5,000 unit SUBQ BID [facility] Last Admin: 09/14/16 09:19 Dose: 5,000 unit Hydromorphone HCl (Dilaudid Inj) 1 mg IVP Q2HR PRN PRN Reason: PAIN Last Admin: 09/13/16 11:26 Dose: 1 mg Levofloxacin (Levaquin 500 Mg/100 Ml) 100 mls @ 100 mls/hr IV Q24H [facility] Last Admin: 09/13/16 16:58 Dose: 100 mls/hr Ketorolac Tromethamine (Toradol Inj) 15 mg IVP Q6HR PRN PRN Reason: PAIN Stop: 09/18/16 12:41 Last Admin: 09/14/16 02:29 Dose: 15 mg Ondansetron HCl (Zofran Inj) 4 mg IVP Q6HR PRN PRN Reason: Nausea / Vomiting Oxycodone HCl (Roxicodone) 10 mg PO Q4HR PRN PRN Reason: PAIN Last Admin: 09/13/16 13:22 Dose: 10 mg Polyethylene Glycol (Miralax) 17 gm PO DAILY [facility] Last Admin: 09/13/16 08:16 Dose: Not Given Sodium Chloride (Normal Saline Flush 0.9%) 10 ml IVP PRN PRN PRN Reason: NEEDED PER PROVIDER ORDERS Last Admin: 09/14/16 02:30 Dose: 10 ml Sodium Chloride (Normal Saline Flush 0.9%) 10 ml IVP Q8HR [facility] Last Admin: 09/14/16 05:24 Dose: Not Given No Known Home Medications [No Known Home Medications] 09/11/16 Objective - Vital Signs/Intake & Output Reviewed Vital Signs: Yes Vital Signs: Vital Signs x48h Temp Pulse Resp BP Pulse Ox 09/14/16 08:42 36.6 C 82 16 136/85 H 97 09/14/16 05:54 36.6 C 77 16 118/76 96 Intake & Output: Intake & Output 09/11/16 09/12/16 09/13/16 09/14/16 23:59 23:59 23:59 23:59 Intake Total 247 4746 2556 840 Output Total 150 1075 1025 Balance 97 3671 1531 840 - Objective General Appearance: positive: No acute distress Eyes Bilateral: positive: Other (Keeps his eyes closed and when I ask him to open his eyes he only does it for a second) ENT: positive: Pharynx nml, No signs of dehydration Neck: positive: No JVD Respiratory: positive: Chest non-tender, No respiratory distress, Breath sounds nml (diminished bases) Cardiovascular: positive: Regular rate & rhythm. negative: Tachycardia Peripheral Pulses: 2+ Radial (R), 2+ Radial (L) Abdomen: positive: Non-tender (obese). negative: Nml bowel sounds (hypoactive bowel sounds), Guarding, Rebound Back: positive: CVA tenderness (L) Skin: positive: Color nml, No rash, Warm, Dry Extremities: positive: Non-tender, Full ROM, Nml appearance. negative: Pedal edema, Calf tenderness Neurologic/Psychiatric: positive: Oriented x3, Motor nml, Sensation nml. negative: Mood/affect nml (flat depressed unengaged) - Lab Results Fish Bones: 09/14/16 05:10 09/14/16 05:10 Other Labs: Lab Results x24hrs 09/14/16 09/14/16 09/14/16 Range/Units 05:10 05:10 05:10 WBC 15.4 H (4.8-10.8) x10^3/uL RBC 4.88 (4.70-6.10) 10^6/uL Hgb 13.7 L (14.0-18.0) g/dL Hct 41.4 L (42.0-52.0) % MCV 84.9 (80.0-94.0) fL MCH 28.1 (27.0-31.0) pg MCHC 33.1 (32.0-36.0) g/dL RDW 12.7 (12.0-15.0) % Plt Count 225 (130-450) 10^3/uL MPV 7.9 (7.4-11.4) fL Neut # 12.6 H (1.5-6.6) 10^3/uL Lymph # 1.1 L (1.5-3.5) 10^3/uL [place] # 1.6 H (0.0-1.0) 10^3/uL Eos # 0.1 (0.0-0.7) 10^3/uL Baso # 0.0 (0.0-0.1) 10^3/uL Absolute Nucleated RBC 0.00 x10^3/uL Nucleated RBCs 0.0 /100WBC Sodium 137 (135-145) mmol/L Potassium 3.5 (3.5-5.0) mmol/L Chloride 104 (101-111) mmol/L Carbon Dioxide 24 (21-32) mmol/L Anion Gap 9.0 (6-13) BUN 17 (6-20) mg/dL Creatinine 1.1 (0.6-1.2) mg/dL Estimated GFR (MDRD) 78 L (>89) Glucose 114 H (70-100) mg/dL Lactic Acid 0.7 (0.5-2.2) mmol/L Calcium 8.7 (8.5-10.3) mg/dL Total Bilirubin 1.2 H (0.2-1.0) mg/dL AST 16 (10-42) IU/L ALT 30 (10-60) IU/L Alkaline Phosphatase 67 (42-121) IU/L Total Protein 7.0 (6.7-8.2) g/dL Albumin 3.0 L (3.2-5.5) g/dL Globulin 4.0 (2.1-4.2) g/dL Albumin/Globulin Ratio 0.8 L (1.0-2.2) Assessment/Plan - Problem List (1) Pyelonephritis Impression: Presented with left flank pain and fever/chills in the setting of hx of kidney stones and JJ ureteral stent placement a year ago (failed to follow-up as outpatient). He has had no fever or tachycardia. WBC 27, started empirically on levaquin - trending down, now 15. Pain persists but able to mobilize. Renal US 09/13 shows resolution of hydronephrosis. -IV levaquin (needs 10d course per urology) -Trend WBC -PO tylenol and IV toradol q6hr prn -PO oxycodone if above ineffective -DC IV dilaudid in preparation for DC tomorrow -Bowel regimen: colace BID (refusing miralax) Discussed with Dr Espinosa ([facility] urology) who knows the patient, reports concern that stent may be calcified making stone removal difficulty and may need posterior (through the back) approach. Follow-up in the clinic 09/27/16 2:30pm in the [place] office to discuss plan. (2) Positive blood culture Impression: Blood cultures on 09/14/16 with 1 of 4 bottles + for MRSEpidermidis Likely contaminant WBC responding to therapy Will continue antibx as noted above
[2016-09-14] MEDS: POLYETHYLENE GLYCOL 3350 17 GM PACKET PO SCH (11:41)
[2016-09-14] MEDS: oxyCODONE 5 MG TABLET PO PRN (18:14)
[2016-09-14] MEDS ORDERED: MORPHINE 2 MG/ML SYRINGE IVP PRN (20:50)
[2016-09-15] MEDS: SODIUM CHLORIDE FLUSH 0.9% 10 ML SYRINGE IVP SCH (06:08)
[2016-09-15 06:23] LABS: BASOPHILS % (AUTO) 0.4 %; EOSINOPHILS # (AUTO) 0.3 10^3/uL (0.0-0.7); EOSINOPHILS % (AUTO) 2.3 %; HCT - HEMATOCRIT 41.3 % (42.0-52.0); HGB - HEMOGLOBIN 13.7 g/dL (14.0-18.0); LYMPHOCYTES # (AUTO) 1.3 10^3/uL (1.5-3.5); LYMPHOCYTES % (AUTO) 11.1 %; MEAN CORPUSCULAR HEMOGLOBIN 28.1 pg (27.0-31.0); MEAN CORPUSCULAR HGB CONC 33.2 g/dL (32.0-36.0); MEAN CORPUSCULAR VOLUME 84.5 fL (80.0-94.0); MEAN PLATELET VOLUME 7.8 fL (7.4-11.4); MONOCYTES # (AUTO) 1.4 10^3/uL (0.0-1.0); MONOCYTES % (AUTO) 11.9 %; NEUTROPHILS # (AUTO) 8.7 10^3/uL (1.5-6.6); NEUTROPHILS % (AUTO) 74.3 %; RED BLOOD COUNT 4.89 10^6/uL (4.70-6.10); RED CELL DISTRIBUTION WIDTH 13.1 % (12.0-15.0); UNCORRECTED WHITE BLOOD COUNT 11.8 x10^3/uL; WHITE BLOOD COUNT 11.8 x10^3/uL (4.8-10.8)
[2016-09-15 06:32] LABS: ALBUMIN/GLOBULIN RATIO 0.7 (1.0-2.2); BILIRUBIN,TOTAL 0.6 mg/dL (0.2-1.0); CALCIUM 8.5 mg/dL (8.5-10.3); CREATININE 1.1 mg/dL (0.6-1.2); POTASSIUM 3.4 mmol/L (3.5-5.0); TOTAL PROTEIN 6.8 g/dL (6.7-8.2)
[2016-09-15] MEDS ORDERED: POTASSIUM CHLORIDE 20 MEQ TABLET PO SCH (08:07)
[2016-09-15 08:13] VITALS: BP 134/78
--- NOTE | 2016-09-15 08:13 | Discharge Plan ---
Discharge Plan Disposition: 01 Home, Self Care Condition: Stable Prescriptions: oxyCODONE [Roxicodone] 5 - 10 mg PO Q4HR PRN #30 tablet PRN Reason: Pain Levofloxacin [Levaquin] 750 mg PO DAILY #5 tablet Diet: Regular Activity Restrictions: Activity as Tolerated Shower Restrictions: No Driving Restrictions: Yes (do not drive while taking narcotic pain medicine) Weight Bearing: Full Weight Additional Instructions or Follow Up instructions: You have a kidney stone that needs to be removed. There was infection in the kidney that has been treated with antibiotics and improved, you will continue antibiotics for 5 more days. If you continue to have fever/chills after completing antibiotics go to your PCP or call Dr Azevedo's office. Use tylenol for pain. For severe pain use oxycodone as needed, this is a narcotic pain medicine. It should not be used while drinking alcohol or driving. Stay hydrated, drink 2-3liters of water a day. Follow-up with Dr Lao on 09/27 at 2:30pm in the [place] office to discuss removal of the stone. No Smoking: If you smoke, Please STOP! Call for help.
--- NOTE | 2016-09-15 08:22 | DISCHARGE SUMMARY ---
"Discharge Summary Admit Date: 09/11/16 Discharge Date: 09/15/16 Discharging Provider: Diane SERVIN Primary Care Provider: none Code Status: Attempt Resuscitation Condition at Discharge: Stable Discharge Disposition: 01 Home, Self Care - DIAGNOSES Discharge Diagnoses with Status of Each Condition: 1. Pyelonephritis 2. Nephrolithiasis - CONSULTS | PROCEDURES Consultations: By telephone: Dr Joan Espinosa - HOSPITAL COURSE Hospital Course: (1) Pyelonephritis Presented with left flank pain and fever/chills in the setting of hx of kidney stones and double-J ureteral stent placement a year ago (failed to follow-up as outpatient). He has had no fever or tachycardia. WBC 27on admission, started empirically on levaquin - trending down, now 11. Urine cx with no growth. Pain persists but able to mobilize. Renal US 09/13 shows resolution of hydronephrosis. Will continue levaquin PO to complete 10day course. Control pain at home with tylenol and prn oxycodone. Encouraged bowel meds as needed for constipation. Encouraged adequate hydration 2-3liters a day. Discussed with Dr Espinosa ([facility]) who knows the patient, reports concern that stent may be calcified making stone removal difficult and may need posterior approach. Follow-up in the clinic 09/27/16 2:30pm in the [place] office to discuss plan. (2) Positive blood culture Blood cultures on 09/14/16 with 1 of 4 bottles + for MRSEpidermidis Likely contaminant WBC responding to therapy Will continue antibx as noted above (3) Morbid obesity BMI 50.5. Recommend establishing with PCP for routine health maintenance and medically supervised weight loss. - ALLERGIES Allergies/Adverse Reactions: Allergies Allergy/AdvReac Type Severity Reaction Status Date / Time No Known Drug Allergies Allergy Verified 09/11/16 16:34 - MEDICATIONS Home Medications: Ambulatory Orders Medication Instructions Recorded Confirmed Acetaminophen [Tylenol] 650 mg PO Q4HR PRN #0 tablet 09/15/16 Docusate Sodium 250Mg Capsule 250 mg PO BID capsule 09/15/16 [Colace 250Mg Capsule] Levofloxacin [Levaquin] 750 mg PO DAILY #5 tablet 09/15/16 oxyCODONE [Roxicodone] 5 - 10 mg PO Q4HR PRN #30 tablet 09/15/16 - PHYSICAL EXAM AT DISCHARGE General Appearance: positive: No acute distress, Alert Respiratory: positive: Chest non-tender, No respiratory distress, Breath sounds nml Cardiovascular: positive: Regular rate & rhythm Peripheral Pulses: positive: 2+ Abdomen: positive: Non-tender, Nml bowel sounds Skin: positive: Color nml, Warm, Dry. negative: Skin rash Extremities: positive: Non-tender, Full ROM, Nml appearance. negative: Pedal edema Neurologic/Psychiatric: positive: Oriented x3, Motor nml, Sensation nml - LABS Result Diagrams: 09/15/16 05:47 09/15/16 05:47 - DIAGNOSTIC IMAGING Diagnostic Imaging Results: Final report reviewed Diagnostic Imaging Results Comments: 09/11/16 1. Abx xray: left side ureteral stent with the pig tail at the distal end appearing partially uncoiled 2. Lumbar CT: No lumbar spine fracture. Left nephrolithiasis, with a nonobstructing 8mm calculis in the proximal left ureter. The double J stent, which does not extend to the urinary bladder. Hydronephrosis, despite stent compatible with stent malfunction. 3. Chest xray: no acute pathology 09/13/16 4. Renal ultrasound: Normal renal ultrsound, no hydronephrosis - FOLLOW UP Follow Up: Dr Joan Espinosa on 09/27/16 at 2:30pm at the [place] office Establish care with PCP for routine health maintenance"
[2016-09-15] MEDS: FAMOTIDINE 20 MG TABLET PO SCH (08:39)
[2016-09-15] MEDS: DOCUSATE SODIUM 250 MG CAPSULE PO SCH (08:40)
[2016-09-15] MEDS: HEPARIN 5,000 UNIT/ML VIAL SUBQ SCH (08:42)
[2016-09-15] MEDS: POLYETHYLENE GLYCOL 3350 17 GM PACKET PO SCH (09:19)
== END 2016-09-15 10:17 | disposition home or self-care (01) | DRG 694 ==
LOC: ED 16:28 → MS 19:30
PROVIDERS: ADMIT Specialist; ATTEND Nurse Practitioner Acute Care
DX: N13.2 Hydronephrosis with renal and ureteral calculous obstruction (principal); Z68.43 Body mass index [BMI] 50.0-59.9, adult; E66.01 Morbid (severe) obesity due to excess calories; Z96.0 Presence of urogenital implants; Z83.3 Family history of diabetes mellitus; Z90.49 Acquired absence of other specified parts of digestive tract
CPT/HCPCS: 36415; 71020; 72131; 74000; 76700; 76770; 76857; 80053; 81001; 81003; 82550; 83036; 83605; 83690; 85025; 87040; 87086; 96361; 96365; 96375; 99283; 99284; 99285